=== PATIENT | female | born 1965 | race Hispanic/Latino ===

== ENCOUNTER 2019-03-12 10:37 | Emergency (ER) | payer OTHER, SELFPAY ==
[2019-03-12] MEDS ORDERED: KETOROLAC 30 MG/ML INJ ONE (11:23)
[2019-03-12] MEDS ORDERED: FENTANYL CITR 100 MCG/2 ML ONE (12:12)
--- NOTE | 2019-03-12 12:14 | RAD REPORT ---
EXAM DESCRIPTION: RAD - Wrist Right 3 View - 03/12/2019 11:50 am CLINICAL HISTORY: Right wrist pain status post injury FINDINGS: Dislocation of the the fourth metacarpal . Lucency within the base of the fourth metacarpa l equivocal for a nondisplaced fracture. Bony density which lies at the fifth MCP joint could either represent an ossicle or small avulsion fracture from the hamate.
--- NOTE | 2019-03-12 12:15 | RAD REPORT ---
EXAM DESCRIPTION: RAD - Hand Right 3 View - 03/12/2019 11:48 am CLINICAL HISTORY: Right hand pain status post injury FINDINGS: Dislocation of the the fourth metacarpal . Lucency within the base of the fourth metacarpa l equivocal for a nondisplaced fracture. Bony density which lies at the fifth MCP joint could either represent an ossicle or small avulsion fracture from the hamate.
[2019-03-12] MEDS ORDERED: NA CHLORIDE 0.9% 1,000 ML ONE (14:09)
[2019-03-12] MEDS ORDERED: MORPHINE 4 MG/ML SYR ONE (14:09)
[2019-03-12] MEDS ORDERED: ONDANSETRON 4 MG/2 ML VIAL ONE (14:09)
[2019-03-12] MEDS ORDERED: PROPOFOL 200 MG/20 ML VIAL IV ONE (14:10)
--- NOTE | 2019-03-12 14:19 | RAD REPORT ---
EXAM DESCRIPTION: RAD - Hand Right 2 View - 03/12/2019 1:32 pm CLINICAL HISTORY: Right hand pain FINDINGS: On the lateral view the base of the fourth metacarpal does not appear to align with the ca rpal bone. Presumably this represents a dislocation. Another consideration is that this is a displace d fracture. If clinically indicated further evaluation with CT could be obtained
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
--- NOTE | 2019-03-12 16:09 | RAD REPORT ---
EXAM DESCRIPTION: RAD - Hand Right 2 View - 03/12/2019 3:04 pm CLINICAL HISTORY: Right hand pain FINDINGS: On the lateral view there appears to be persistence of the fourth metacarpal dislocation. Small bony density adjacent to the base of the fourth metacarpal may represent an avulsion fracture f ragment. CT scan may be helpful to further evaluate the fourth metacarpal and fourth MCP joint
== END 2019-03-12 16:19 | disposition home or self-care (01) ==
LOC: ER 10:37
PROC: 0PSPXZZ Reposition Right Metacarpal, External Approach (ICD-10-PCS; principal; 2019-03-12)
DX: S62.314A Displaced fracture of base of fourth metacarpal bone, right hand, initial encounter for closed fracture (principal); V49.40XA Driver injured in collision with unspecified motor vehicles in traffic accident, initial encounter; I10 Essential (primary) hypertension
CPT/HCPCS: 96372; 96374; 96375; 99285; J2405; J2704; J3010; J7030

== ENCOUNTER 2019-03-15 08:12 | Day surgery (SDC) | payer OTHER ==
[2019-03-15] MEDS ORDERED: NA CHLORIDE 0.9% 1,000 ML ONE ×2 (08:53→11:13)
[2019-03-15] MEDS ORDERED: CEFAZOLIN/SWI 1gm 1 GM/10 ML SYR ONE (08:53)
[2019-03-15] MEDS ORDERED: INSULIN -REGULAR HUMAN 50 UNIT/0.5 ML ML ONE (09:19)
[2019-03-15] MEDS ORDERED: dexAMETHasone 10 MG/ML VIAL ONE (10:00)
[2019-03-15] MEDS ORDERED: FENTANYL CITR 100 MCG/2 ML ONE ×2 (10:00→11:54)
[2019-03-15] MEDS ORDERED: PROPOFOL 200 MG/20 ML VIAL IV ONE (10:00)
[2019-03-15] MEDS ORDERED: MIDAZOLAM HCL 2 MG/2 ML INJ ONE (10:00)
[2019-03-15] MEDS ORDERED: LIDOCAINE 2% MPF 5 ML VIAL ONE (10:00)
[2019-03-15] MEDS ORDERED: ONDANSETRON 4 MG/2 ML VIAL ONE (10:01)
[2019-03-15] MEDS ORDERED: KETOROLAC 30 MG/ML INJ ONE (11:00)
[2019-03-15] MEDS: HYDROMORPHONE HCL 1 MG/ML INJ ONE ×4 (11:26→11:41)
[2019-03-15] MEDS ORDERED: HYDROCODONE/APAP 7.5/325 MG TAB PO ONE (12:35)
[2019-03-15] MEDS ORDERED: HYDROCODONE/APAP 7.5/325 MG TAB ONE (12:41)
--- NOTE | 2019-03-15 22:53 | OP ---
Surgeon: Yonatan Harris MD Preoperative Diagnosis: Fracture of the fourth metacarpal base. Postoperative Diagnosis: Fracture of the fourth metacarpal base. Procedure Performed: Closed reduction and percutaneous pinning, splint. Anesthesia: General. Procedure In Detail: After satisfactory induction of general anesthesia, the right hand was prepped with Betadine scrub, Betadine paint. Dry sterile drapes applied in usual manner. 0.045 K-wire was p laced from distal to proximal with MCP flexed to 90 degrees, reducing the fracture and pinning to the carpal bone proximally. Two pins were placed. SCM was used for guidance. Wires were cut and bent. Dressed this with Xeroform, Kerlix, and a splint holding the wrist in 10 degrees of dorsiflexion, M CP 90, PIP and DIP 0. Patient tolerated the procedure well and returned to Recovery. PAM/MAGGIE Voice ID: [id number] Report ID: [id number]
== END 2019-03-15 13:15 | disposition home or self-care (01) ==
LOC: OR 08:12
PROVIDERS: ATTEND Specialist
PROC: 0PSP34Z Reposition Right Metacarpal with Internal Fixation Device, Percutaneous Approach (ICD-10-PCS; principal; 2019-03-15 10:00)
DX: S62.314A Displaced fracture of base of fourth metacarpal bone, right hand, initial encounter for closed fracture (principal); V89.2XXA Person injured in unspecified motor-vehicle accident, traffic, initial encounter
CPT/HCPCS: 26608; 82962 ×3; J2704; J2250; J3010 ×2; J1100; J1170 ×2; J0690; J7030 ×2; J2405